=== PATIENT | female | born 1985 | race Caucasian/White ===

== ENCOUNTER 2017-01-13 08:59 | Emergency (ER) | payer OTHER ==
[~2017-01-13] VITALS: Ht 152.4 cm; Wt 79.8 kg
--- NOTE | 2017-01-13 09:01 | NUR ---
Patient ambulated to bed 08.
[2017-01-13 09:04] VITALS: BP 124/79
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
--- NOTE | 2017-01-13 09:16 | NUR ---
ER MD DR. DIAZ EVALUATING PT AT BEDSIDE.
[2017-01-13] MEDS ORDERED: IBUPROFEN 800 MG TAB PO ONE (09:25)
--- NOTE | 2017-01-13 09:36 | NUR ---
XRAY AT BEDSIDE.
[2017-01-13 10:52] VITALS: BP 103/67
== END 2017-01-13 10:52 | disposition home or self-care (01) ==
LOC: MED 08:59
DX: S61.214A Laceration without foreign body of right ring finger without damage to nail, initial encounter (principal); R03.0 Elevated blood-pressure reading, without diagnosis of hypertension; Z88.8 Allergy status to other drugs, medicaments and biological substances; V23.4XXA Motorcycle driver injured in collision with car, pick-up truck or van in traffic accident, initial encounter; Y93.89 Activity, other specified; Y92.488 Other paved roadways as the place of occurrence of the external cause; Y99.8 Other external cause status
CPT/HCPCS: 12001; 73130; 99284; Q0092

== ENCOUNTER 2018-10-22 06:28 | Emergency (ER) | payer MEDICAID, OTHER ==
[~2018-10-22] VITALS: Ht 154.9 cm; Wt 75.7 kg
[2018-10-22 06:50] VITALS: BP 122/81
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
--- NOTE | 2018-10-22 07:15 | NUR ---
PT AA0X4. DR MARTINO AT BEDSIDE. PT GIVEN BLANKET FOR COMFORT
--- NOTE | 2018-10-22 07:17 | NUR ---
Pt report given to OLIVA VELASCO. Transfer of care at this time.
[2018-10-22] MEDS ORDERED: KETOROLAC 15 MG/ML VIAL IM ONE (07:20)
--- NOTE | 2018-10-22 07:27 | NUR ---
XRAY AT BEDSIDE
--- NOTE | 2018-10-22 08:01 | NUR ---
PT SIGNED CONSENT FORM FOR TDAP
[2018-10-22 08:13] VITALS: BP 125/77
--- NOTE | 2018-10-22 08:13 | NUR ---
Patient discharged with v/s stable. Written and verbal after care instructions given and explained. Patient alert, oriented and verbalized understanding of instructions. Ambulatory with steady gait. All questions addressed prior to discharge. ID band removed. Patient advised to follow up with PMD. Rx of MOTRIN, AUGMENTIN given. Patient educated on indication of medication including possible reaction and side effects. Opportunity to ask questions provided and answered. PT INSTRUCTED TO TAKE AUGMENTIN WITH A MEAL.
== END 2018-10-22 08:13 | disposition home or self-care (01) ==
LOC: MED 06:28
DX: S20.311A Abrasion of right front wall of thorax, initial encounter (principal); S61.251A Open bite of left index finger without damage to nail, initial encounter; R22.0 Localized swelling, mass and lump, head; F17.200 Nicotine dependence, unspecified, uncomplicated; Z87.442 Personal history of urinary calculi; Z88.8 Allergy status to other drugs, medicaments and biological substances; Y04.1XXA Assault by human bite, initial encounter; Y93.89 Activity, other specified; Y92.89 Other specified places as the place of occurrence of the external cause; Y99.8 Other external cause status
CPT/HCPCS: 70160; 73140; 90471; 90715; 96372; 99283; J1885

== ENCOUNTER 2019-04-02 15:20 | Emergency (ER) | payer MEDICAID ==
[~2019-04-02] VITALS: Ht 152.4 cm; Wt 81.6 kg
[2019-04-02 15:23] VITALS: BP 118/78
--- NOTE | 2019-04-02 15:34 | NUR ---
C/O SORE THROAT & PLEURITIC CHEST PAIN X 2 DAYS. STATES COUGH, SOB/CHEST CONGESTION, SBUJECTIVE FEVER AND CHILLS. DENIES N/V. 98% RA. HR 101 REGULAR RHYTHM. MED HX: DENIES
--- NOTE | 2019-04-02 15:46 | NUR ---
CXR AT BEDSIDE
[2019-04-02] MEDS ORDERED: ACETAMINOPHEN EXTRA STRENGTH 500 MG TAB PO ONE (15:50)
--- NOTE | 2019-04-02 15:50 | NUR ---
FLU SWAB TAKEN AT BEDSIDE
--- NOTE | 2019-04-02 17:04 | NUR ---
ANA OCHOA SPEAKING WITH PT AT BEDSIDE
[2019-04-02 17:14] VITALS: BP 141/87
--- NOTE | 2019-04-02 17:16 | NUR ---
Patient discharged with v/s stable. Written and verbal after care instructions given and explained. Patient alert, oriented and verbalized understanding of instructions. Ambulatory with steady gait. All questions addressed prior to discharge. ID band removed. Patient advised to follow up with PMD. Rx of PROMETHAZINE DM AND TYLENOL given. Patient educated on indication of medication including possible reaction and side effects. Opportunity to ask questions provided and answered.
== END 2019-04-02 17:16 | disposition home or self-care (01) ==
LOC: MED 15:20
DX: B34.9 Viral infection, unspecified (principal); F17.210 Nicotine dependence, cigarettes, uncomplicated; Z88.8 Allergy status to other drugs, medicaments and biological substances; Z87.442 Personal history of urinary calculi
CPT/HCPCS: 71045; 87804; 99284; Q0092

== ENCOUNTER 2019-07-08 17:44 | Emergency (ER) | payer MEDICAID, SELFPAY ==
[~2019-07-08] VITALS: Ht 152.4 cm; Wt 105.2 kg
[2019-07-08 18:00] VITALS: BP 113/82
--- NOTE | 2019-07-08 18:00 | NUR ---
Patient ambulated to bed 10. RN evaluating patient at bedside.
--- NOTE | 2019-07-08 18:01 | NUR ---
Pt placed in bed 10 for COVID precautions. Pt walked in from tent through ambulance bay. Pt wearing surgical mask.
--- NOTE | 2019-07-08 18:09 | NUR ---
COVID 19 HOSPITAL PROTOCOL FOLLOWED PT ENTERING WITH MASK TO ER PLACED IN ISOLATION ROOM COVID SIGN/SIGN IN SHEET AT BEDSIDE RN FULL PPE
--- NOTE | 2019-07-08 18:09 | NUR ---
34 Y/O F C/C COUGH/SOB/DIZZINESS/MYALGIA X 1 DAY. PT PRESENTS EUPNEA, NO RESP DISTRESS, EQUAL SYMMETRICAL BREATHING. HAS NOT TAKEN OTC RX. PT FURTHER COMPLAINTS OF FEVERS BEING ON AND OFF, CURRENTLY AFEBRILE. ALLERGIES BENADRYL. NO HX. NO RX. NO NVD. DENIES BEING IN CONTACT WITH ANYONE POSITIVE COVID, NOT TRAVELLED, AND NO GATHERINGS. A/OX4, ALERT/ORIENTED, CALM, COOPERATIVE, CLEAR SPEECH.
--- NOTE | 2019-07-08 18:16 | NUR ---
Dr. Leiva is evaluating the patient at bedside.
[2019-07-08] MEDS ORDERED: NACL 0.9% 1,000 ML IV ONE (18:20)
[2019-07-08] MEDS ORDERED: KETOROLAC 30 MG/ML VIAL IVP ONE (18:20)
--- NOTE | 2019-07-08 18:49 | NUR ---
RAD AT BEDSIDE
--- NOTE | 2019-07-08 19:15 | NUR ---
BOLUS STARTED, TORADOL ADMINISTERED
--- NOTE | 2019-07-08 19:16 | NUR ---
PT REFUSED COViD SWAb
--- NOTE | 2019-07-08 19:16 | NUR ---
flu swab collected by jesus neal
--- NOTE | 2019-07-08 19:19 | NUR ---
REPORT GIVEN TO KELVIN BAPTISTE, TRANSFER OF CARE
--- NOTE | 2019-07-08 19:20 | NUR ---
RECIEVED REPORT FROM OLIVA HOFFMAN. TRANSFER OF CARE AT THIS TIME.
--- NOTE | 2019-07-08 19:21 | NUR ---
LABS AND FLU SWAB SENT TO LAB.
[2019-07-08 19:30] LABS: BASOPHILS # (AUTO) 0.1 K/uL (0.00-0.22); BASOPHILS % (AUTO) 1.3 % (0.0-2.0); EOSINOPHILS # (AUTO) 0.2 K/uL (0-0.4); EOSINOPHILS % (AUTO) 3.8 % (0.0-4.0); HEMATOCRIT 39.6 % (36-48); HEMOGLOBIN 12.7 g/dL (12.0-16.0); LYMPHOCYTES # (AUTO) 1.3 K/uL (2.5-16.5); LYMPHOCYTES % (AUTO) 21.4 % (20.5-51.1); MEAN CORPUSCULAR HEMOGLOBIN 28 pg (27-31); MEAN CORPUSCULAR HGB CONC 32 g/dL (33-37); MEAN CORPUSCULAR VOLUME 86.1 fL (80-94); MONOCYTES # (AUTO) 0.5 K/uL (0.8-1.0); MONOCYTES % (AUTO) 9.1 % (1.7-9.3); NEUTROPHILS # (AUTO) 3.8 K/uL (1.8-7.7); NEUTROPHILS % (AUTO) 64.4 % (42.2-75.2); PLATELET COUNT (AUTO) 242 K/uL (140-450); RED BLOOD CELL COUNT(AUTO) 4.59 MIL/uL (4.20-5.40); RED CELL DISTRIBUTION WIDTH 16.3 % (11.6-13.7); WHITE BLOOD COUNT (AUTO) 5.9 K/uL (4.8-10.8)
[2019-07-08 19:45] LABS: ALBUMIN 3.3 g/dL (3.4-5.0); ANION GAP 12.3 (8-16); CARBON DIOXIDE 28.2 mmol/L (21-32); CREATININE 0.8 mg/dL (0.6-1.3); POTASSIUM 3.5 mmol/L (3.5-5.1); TOTAL BILIRUBIN 0.2 mg/dL (0.0-1.0)
--- NOTE | 2019-07-08 20:34 | NUR ---
PT AMBULATED TO TO PROVIDE URINE SAMPLE AFTER STATING THAT SHE HAS 6/10 BILATERAL FLANK PAIN.
[2019-07-08] MEDS ORDERED: cefTRIAXone 1,000 MG VIAL ONE (20:44)
--- NOTE | 2019-07-08 20:54 | NUR ---
PT RESTING COMFORTABLY IN BED. EQUAL CHEST RISE AND FALL. IV INFUSION OF ROCEPHIN STARTED.
[2019-07-08 20:56] LABS: APPEARANCE,URINE SL CLOUDY (CLEAR); BILIRUBIN,URINE NEGATIVE (NEGATIVE); BLOOD, URINE TRACE-I (NEGATIVE); COLOR,URINE YELLOW (YELLOW); LEUKOCYTE ESTERASE ,URINE 2+ (NEGATIVE); NITRITE, URINE POSITIVE (NEGATIVE); PH,URINE 6.5 (5.0-9.0); UGLUCOSE NEGATIVE (NEGATIVE)
[2019-07-08 21:31] VITALS: BP 127/76
--- NOTE | 2019-07-08 21:31 | NUR ---
Patient discharged with v/s stable. Written and verbal after care instructions given and explained. Patient alert, oriented and verbalized understanding of instructions. Ambulatory with steady gait. All questions addressed prior to discharge. ID band removed. Patient advised to follow up with PMD. Rx of levaquin given. Patient educated on indication of medication including possible reaction and side effects. Opportunity to ask questions provided and answered. Pt to follow up with her primary MD in 1-2 days, and go to any nearest ED or urgent care if sx worsens.
[2019-07-08 21:32] LABS: RBC,URINE 0-5 /HPF (0-5)
== END 2019-07-08 21:31 | disposition home or self-care (01) ==
LOC: MED 17:44 → EEVIPCON 17:44 → MED 21:31
DX: J06.9 Acute upper respiratory infection, unspecified (principal); N39.0 Urinary tract infection, site not specified; F17.210 Nicotine dependence, cigarettes, uncomplicated; N20.0 Calculus of kidney; Z88.8 Allergy status to other drugs, medicaments and biological substances; Z87.442 Personal history of urinary calculi
CPT/HCPCS: 36415; 71045; 80053; 81001; 81025; 85025; 87086; 87804; 96365; 96375; 99284; J0696; J1885; 87186; J7030

== ENCOUNTER 2019-08-05 05:22 | Emergency (ER) | payer MEDICAID, SELFPAY ==
[~2019-08-05] VITALS: Ht 152.4 cm; Wt 68.0 kg
[2019-08-05 05:26] VITALS: BP 108/65
--- NOTE | 2019-08-05 05:27 | NUR ---
PT TO BED 11 PT CARE TO ABEL/ANTONELLA BAPTISTE
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
[2019-08-05 05:53] VITALS: BP 108/65
== END 2019-08-05 05:53 | disposition home or self-care (01) ==
LOC: MED 05:22
DX: R21 Rash and other nonspecific skin eruption (principal); L29.9 Pruritus, unspecified; F17.210 Nicotine dependence, cigarettes, uncomplicated; N20.0 Calculus of kidney; Z88.8 Allergy status to other drugs, medicaments and biological substances
CPT/HCPCS: 99283

== ENCOUNTER 2022-01-07 12:22 | Emergency (ER) | payer MEDICAID, OTHER ==
[~2022-01-07] VITALS: Ht 165.1 cm; Wt 84.8 kg
[2022-01-07 12:52] VITALS: BP 144/70
--- NOTE | 2022-01-07 13:48 | NUR ---
L EYE IRRIGATED VIA NITIN LENS WITH 1000mL NORMAL SALINE.
--- NOTE | 2022-01-07 17:54 | NUR ---
PATIENT LEFT WITHOUT BEING SEEN BY DR. CAMPUZANO. NO FURTHER CARE PROVIDED FOR PATIENT.
== END 2022-01-07 17:54 | disposition left against medical advice (07) ==
LOC: MED 12:22
DX: H53.9 Unspecified visual disturbance (principal); Z53.21 Procedure and treatment not carried out due to patient leaving prior to being seen by health care provider

== ENCOUNTER 2023-04-23 01:15 | Emergency (ER) | payer MEDICAID, OTHER ==
[~2023-04-23] VITALS: Ht 152.4 cm; Wt 86.3 kg
[2023-04-23 01:20] VITALS: BP 138/78; PULSE 101; RESP 17; TEMP 98; O2SAT 98
[2023-04-23 02:25] LABS: BASOPHILS # (AUTO) 0.1 K/uL (0.00-0.22); BASOPHILS % (AUTO) 0.9 % (0.0-2.0); EOSINOPHILS # (AUTO) 0.4 K/uL (0-0.4); EOSINOPHILS % (AUTO) 3.9 % (0.0-4.0); HEMATOCRIT 33.3 % (36-48); HEMOGLOBIN 10.9 g/dL (12.0-16.0); LYMPHOCYTES # (AUTO) 2.5 K/uL (2.5-16.5); LYMPHOCYTES % (AUTO) 26.3 % (20.5-51.1); MEAN CORPUSCULAR HEMOGLOBIN 25 pg (27-31); MEAN CORPUSCULAR HGB CONC 33 g/dL (33-37); MEAN CORPUSCULAR VOLUME 76.5 fL (80-94); MONOCYTES # (AUTO) 0.9 K/uL (0.8-1.0); MONOCYTES % (AUTO) 9.1 % (1.7-9.3); NEUTROPHILS # (AUTO) 5.6 K/uL (1.8-7.7); NEUTROPHILS % (AUTO) 59.8 % (42.2-75.2); PLATELET COUNT (AUTO) 448 K/uL (140-450); RED BLOOD CELL COUNT(AUTO) 4.35 MIL/uL (4.20-5.40); RED CELL DISTRIBUTION WIDTH 18.4 % (11.6-13.7); WHITE BLOOD COUNT (AUTO) 9.4 K/uL (4.8-10.8)
[2023-04-23 02:40] LABS: ANION GAP 15.4 (8-16); CALCIUM 8.5 mg/dL (8.5-10.1); CARBON DIOXIDE 25.5 mmol/L (21-32); POTASSIUM 5.9 mmol/L (3.5-5.1); TOTAL BILIRUBIN 0.2 mg/dL (0.0-1.0)
[2023-04-23 02:40] LABS: APPEARANCE,URINE CLEAR (CLEAR); BILIRUBIN,URINE 1+ (NEGATIVE); BLOOD, URINE 3+ (NEGATIVE); COLOR,URINE YELLOW (YELLOW); LEUKOCYTE ESTERASE ,URINE 1+ (NEGATIVE); NITRITE, URINE POSITIVE (NEGATIVE); PROTEIN,URINE 1+ (NEGATIVE); UGLUCOSE NEGATIVE (NEGATIVE); UROBILINOGEN,URINE 0.2 EU/dL (0.2 - 1)
[2023-04-23 02:44] LABS: ICTOTEST POSITIVE (NEGATIVE); RBC,URINE TOO NUMEROUS TO COUN /HPF (0-5)
[2023-04-23] MEDS: NACL 0.9% 1,000 ML IV ONE (02:44)
[2023-04-23 02:45] LABS: BACTERIA,URINE 10-30 (MOD) /HPF (None Seen); MUCUS,URINE 1+ /LPF (None Seen); SQUAMOUS EPITHELIAL CELL,UR 0-3 (FEW) /LPF (0-3 (FEW))
[2023-04-23] MEDS: KETOROLAC 30 MG/ML VIAL IVP ONE (02:45)
[2023-04-23] MEDS ORDERED: cefTRIAXone 1,000 MG VIAL ONE (03:46)
[2023-04-23] MEDS ORDERED: LIDOCAINE MPF 1% 5 ML ONE (03:46)
[2023-04-23] MEDS: cefTRIAXone 1,000 MG in LIDOCAINE MPF 1% 2.1 ML IM ONE (03:56)
[2023-04-23] MEDS ORDERED: CIPR500T4 PO (04:16)
[2023-04-23] MEDS ORDERED: PHEN-1877 PO (04:19)
[2023-04-23 04:27] VITALS: BP 138/78; PULSE 101; RESP 17; TEMP 98; O2SAT 98
== END 2023-04-23 04:27 | disposition home or self-care (01) ==
LOC: MED 01:15
DX: N39.0 Urinary tract infection, site not specified (principal); Z79.899 Other long term (current) drug therapy; Z87.448 Personal history of other diseases of urinary system; Z88.8 Allergy status to other drugs, medicaments and biological substances
CPT/HCPCS: 36415; 74176; 80048; 80076; 81001; 81025; 82150; 83690; 85025; 87086; 87491; 96372; 99285; J0696; J2001